=== PATIENT | male | born 1985 | race Caucasian/White ===

== ENCOUNTER 2021-12-15 19:40 | Inpatient (IN) | payer OTHER ==
[2021-12-15 20:13] VITALS: BMI 27.6
[2021-12-15] MEDS ORDERED: ACETAMINOPHEN 325 MG TABLET (FP) PO PRN ×2 (20:25)
[2021-12-15] MEDS ORDERED: LOPERAMIDE HCL 2 MG CAPSULE PO PRN (20:25)
[2021-12-15] MEDS ORDERED: BENZOCAINE/MENTHOL (CHLORASEPTIC ) LOZENGE MM PRN (20:25)
[2021-12-15] MEDS ORDERED: IBUPROFEN 400 MG TABLET (FP) PO PRN (20:25)
[2021-12-15] MEDS ORDERED: DICYCLOMINE HCL 10 MG CAPSULE PO PRN (20:25)
[2021-12-15] MEDS ORDERED: BISMUTH SUBSALICYLATE 524 MG/30 ML PO PRN (20:25)
[2021-12-15] MEDS ORDERED: MAGNESIUM CITRATE 300 ML BOTTLE PO PRN (20:25)
[2021-12-15] MEDS ORDERED: P-EPHED 60MG/TRIPROLIDI 2.5MG TABLET PO PRN (20:25)
[2021-12-15] MEDS ORDERED: MAG HYDROX/AL HYDROX/SIMETH 30 ML UNIT-DOSE CUP PO PRN (20:25)
[2021-12-15] MEDS ORDERED: IBUPROFEN 600 MG TABLET (FP) PO PRN (20:25)
[2021-12-15] MEDS ORDERED: ONDANSETRON *ODT* 4 MG TABLET SL PRN (20:25)
[2021-12-15] MEDS ORDERED: MAGNESIUM HYDROX 2400MG/30ML ORAL SUSPENSION 30 ML CUP PO PRN (20:25)
[2021-12-15] MEDS ORDERED: guaiFENesin 200 MG/10 ML 10 ML UNIT-DOSE CUPS PO PRN (20:25)
[2021-12-15] MEDS ORDERED: chlordiazePOXIDE HCL 25 MG CAPSULE PO ONE (20:26)
[2021-12-15] MEDS ORDERED: METOPROLOL TARTRATE 25 MG TABLET (FP) PO ONE (20:30)
[2021-12-15] MEDS ORDERED: LORazepam 2 MG/ML SDV VIAL IM ONE (20:30)
[2021-12-15] MEDS ORDERED: METOPROLOL TARTRATE 25 MG TABLET (FP) ONE (20:43)
[2021-12-15] MEDS ORDERED: chlordiazePOXIDE HCL 25 MG CAPSULE ONE (20:43)
[2021-12-15] MEDS: levETIRAcetam 500 MG TABLET (FP) PO SCH (22:00)
[2021-12-15] MEDS: THIAMINE HCL 100 MG TABLET (FP) PO SCH (22:03)
[2021-12-15] MEDS: MELATONIN 5 MG TABLETS PO PRN (22:06)
[2021-12-15] MEDS: chlordiazePOXIDE HCL 25 MG CAPSULE PO SCH (23:31)
[2021-12-16] MEDS: chlordiazePOXIDE HCL 25 MG CAPSULE PO SCH ×4 (05:46→22:17)
[2021-12-16] MEDS: levETIRAcetam 500 MG TABLET (FP) PO SCH ×2 (10:04→22:17)
[2021-12-16] MEDS: PRENATAL VITAMINS W/ FOLIC ACID TABLET (FP) PO SCH (10:04)
[2021-12-16] MEDS: chlordiazePOXIDE HCL 25 MG CAPSULE PO PRN ×2 (13:40→20:31)
[2021-12-16 14:23] LABS: HEMATOCRIT 37.6 % (35.4-49); HEMOGLOBIN 12.3 GM/dL (11.7-16.9); MCH 29.3 pg (25.7-33.7); MCHC 32.8 g/dl (32.0-35.9); MEAN CELL VOLUME 89.4 fl (80-96); MEAN PLT VOLUME 8.3 fl (7.5-11.1); PLATELET COUNT 126 10^3/uL (134-434); RBC 4.21 M/mm3 (4.00-5.60); RDW 17.8 % (11.9-15.9)
[2021-12-16] MEDS: METHOCARBAMOL 500 MG TABLET PO PRN (15:28)
[2021-12-16] MEDS: hydrOXYzine PAMOATE 25 MG CAPSULE (FP) PO PRN (15:28)
[2021-12-16 15:34] LABS: ALBUMIN 3.4 g/dl (3.4-5.0); BLOOD UREA NITROGEN 8.5 mg/dL (7-18); CALCIUM 8.5 mg/dL (8.5-10.1)
[2021-12-16 15:38] LABS: CREATININE 0.7 mg/dL (0.55-1.3)
[2021-12-16 15:40] LABS: BILIRUBIN,TOTAL 0.7 mg/dL (0.2-1); TOT PROT 7.3 g/dl (6.4-8.2)
[2021-12-16] MEDS: MELATONIN 5 MG TABLETS PO PRN (22:17)
[2021-12-16] MEDS: THIAMINE HCL 100 MG TABLET (FP) PO SCH (22:17)
[2021-12-17] MEDS: chlordiazePOXIDE HCL 25 MG CAPSULE PO SCH ×4 (06:43→22:07)
[2021-12-17] MEDS: levETIRAcetam 500 MG TABLET (FP) PO SCH ×2 (10:18→22:08)
[2021-12-17] MEDS: PRENATAL VITAMINS W/ FOLIC ACID TABLET (FP) PO SCH (10:18)
[2021-12-17] MEDS: MELATONIN 5 MG TABLETS PO PRN (22:08)
[2021-12-17] MEDS: THIAMINE HCL 100 MG TABLET (FP) PO SCH (22:08)
[2021-12-17] MEDS: METHOCARBAMOL 500 MG TABLET PO PRN (22:08)
[2021-12-18] MEDS ORDERED: chlordiazePOXIDE HCL 10 MG CAPSULE PO PRN
[2021-12-18] MEDS: chlordiazePOXIDE HCL 10 MG CAPSULE PO SCH ×4 (05:12→22:29)
[2021-12-18] MEDS: PRENATAL VITAMINS W/ FOLIC ACID TABLET (FP) PO SCH (10:34)
[2021-12-18] MEDS: levETIRAcetam 500 MG TABLET (FP) PO SCH ×2 (10:34→22:28)
[2021-12-18] MEDS: MELATONIN 5 MG TABLETS PO PRN (22:29)
[2021-12-18] MEDS: THIAMINE HCL 100 MG TABLET (FP) PO SCH (22:29)
[2021-12-18] MEDS: METHOCARBAMOL 500 MG TABLET PO PRN (22:31)
[2021-12-19] MEDS: chlordiazePOXIDE HCL 10 MG CAPSULE PO SCH ×2 (05:09→17:26)
[2021-12-19] MEDS: levETIRAcetam 500 MG TABLET (FP) PO SCH ×2 (10:45→22:46)
[2021-12-19] MEDS: PRENATAL VITAMINS W/ FOLIC ACID TABLET (FP) PO SCH (10:45)
[2021-12-19] MEDS: hydrOXYzine PAMOATE 25 MG CAPSULE (FP) PO PRN (17:28)
[2021-12-19] MEDS: METHOCARBAMOL 500 MG TABLET PO PRN (17:29)
[2021-12-19] MEDS: THIAMINE HCL 100 MG TABLET (FP) PO SCH (22:46)
[2021-12-19] MEDS: MELATONIN 5 MG TABLETS PO PRN (22:46)
[2021-12-20] MEDS ORDERED: chlordiazePOXIDE HCL 10 MG CAPSULE PO ONE (05:00)
[2021-12-20 08:47] VITALS: BP 143/99; PULSE 94; RESP 16; TEMP 98
[2021-12-20] MEDS: PRENATAL VITAMINS W/ FOLIC ACID TABLET (FP) PO SCH (10:16)
[2021-12-20] MEDS: levETIRAcetam 500 MG TABLET (FP) PO SCH (10:16)
== END 2021-12-20 10:58 | disposition other institution (70) | DRG 774 ==
LOC: YASAS 19:40 → Y3N 21:17
PROVIDERS: ADMIT Allergy & Immunology; ATTEND Surgery
PROC: HZ2ZZZZ Detoxification Services for Substance Abuse Treatment (ICD-10-PCS; principal; 2021-12-15)
DX: F10.230 Alcohol dependence with withdrawal, uncomplicated (principal); F14.20 Cocaine dependence, uncomplicated; F10.220 Alcohol dependence with intoxication, uncomplicated; Z86.69 Personal history of other diseases of the nervous system and sense organs
CPT/HCPCS: 36415; 80053; 85027; 86780; 87811; C9803-CS; U0003; U0005

== ENCOUNTER 2021-12-20 11:03 | Inpatient (IN) | payer OTHER ==
[2021-12-20] MEDS ORDERED: IBUPROFEN 400 MG TABLET (FP) PO PRN (14:51)
[2021-12-20] MEDS ORDERED: MAGNESIUM CITRATE 300 ML BOTTLE PO PRN (14:51)
[2021-12-20] MEDS ORDERED: LOPERAMIDE HCL 2 MG CAPSULE PO PRN (14:51)
[2021-12-20] MEDS ORDERED: MAG HYDROX/AL HYDROX/SIMETH 30 ML UNIT-DOSE CUP PO PRN (14:51)
[2021-12-20] MEDS ORDERED: ACETAMINOPHEN 325 MG TABLET (FP) PO PRN (14:51)
[2021-12-20] MEDS ORDERED: NICOTINE 10 MG CARTRIDGE (INHALER) IH PRN (14:51)
[2021-12-20] MEDS ORDERED: BENZOCAINE/MENTHOL (CHLORASEPTIC ) LOZENGE MM PRN (14:51)
[2021-12-20] MEDS ORDERED: P-EPHED 60MG/TRIPROLIDI 2.5MG TABLET PO PRN (14:51)
[2021-12-20] MEDS ORDERED: guaiFENesin 200 MG/10 ML 10 ML UNIT-DOSE CUPS PO PRN (14:51)
[2021-12-20] MEDS ORDERED: MAGNESIUM HYDROX 2400MG/30ML ORAL SUSPENSION 30 ML CUP PO PRN (14:51)
[2021-12-20] MEDS: THIAMINE HCL 100 MG TABLET (FP) PO SCH (21:12)
[2021-12-20] MEDS: MELATONIN 5 MG TABLETS PO SCH (21:12)
[2021-12-21] MEDS: hydrOXYzine PAMOATE 25 MG CAPSULE (FP) PO PRN ×3 (02:16→21:41)
[2021-12-21] MEDS: PRENATAL VITAMINS W/ FOLIC ACID TABLET (FP) PO SCH (09:59)
[2021-12-21] MEDS: NICOTINE 7 MG/24 HOURS TOPICAL PATCH TD SCH (09:59)
[2021-12-21] MEDS: traZODone HCL 50 MG TABLET (FP) PO SCH (21:41)
[2021-12-21] MEDS: THIAMINE HCL 100 MG TABLET (FP) PO SCH (21:41)
[2021-12-21] MEDS: MELATONIN 5 MG TABLETS PO SCH (21:41)
[2021-12-22] MEDS: PRENATAL VITAMINS W/ FOLIC ACID TABLET (FP) PO SCH (09:46)
[2021-12-22] MEDS: NICOTINE 7 MG/24 HOURS TOPICAL PATCH TD SCH (09:46)
[2021-12-22] MEDS ORDERED: LORazepam 2 MG/ML SDV VIAL IM ONE (22:05)
[2021-12-22] MEDS: traZODone HCL 50 MG TABLET (FP) PO SCH (23:16)
[2021-12-22] MEDS: THIAMINE HCL 100 MG TABLET (FP) PO SCH (23:16)
[2021-12-22] MEDS: MELATONIN 5 MG TABLETS PO SCH (23:16)
[2021-12-23] MEDS: hydrOXYzine PAMOATE 25 MG CAPSULE (FP) PO PRN ×2 (04:30→22:31)
[2021-12-23] MEDS: NICOTINE 7 MG/24 HOURS TOPICAL PATCH TD SCH (11:02)
[2021-12-23] MEDS: PRENATAL VITAMINS W/ FOLIC ACID TABLET (FP) PO SCH (11:02)
[2021-12-23] MEDS: levETIRAcetam 500 MG TABLET (FP) PO SCH ×2 (12:16→22:31)
[2021-12-23] MEDS: THIAMINE HCL 100 MG TABLET (FP) PO SCH (22:30)
[2021-12-23] MEDS: MELATONIN 5 MG TABLETS PO SCH (22:30)
[2021-12-23] MEDS: traZODone HCL 50 MG TABLET (FP) PO SCH (22:30)
[2021-12-24] MEDS: NICOTINE 7 MG/24 HOURS TOPICAL PATCH TD SCH (10:23)
[2021-12-24] MEDS: levETIRAcetam 500 MG TABLET (FP) PO SCH ×2 (10:23→21:54)
[2021-12-24] MEDS: PRENATAL VITAMINS W/ FOLIC ACID TABLET (FP) PO SCH (10:23)
[2021-12-24] MEDS: MELATONIN 5 MG TABLETS PO SCH (21:54)
[2021-12-24] MEDS: THIAMINE HCL 100 MG TABLET (FP) PO SCH (21:54)
[2021-12-24] MEDS: traZODone HCL 50 MG TABLET (FP) PO SCH (21:54)
[2021-12-24] MEDS: hydrOXYzine PAMOATE 25 MG CAPSULE (FP) PO PRN (21:55)
[2021-12-25] MEDS: NICOTINE 7 MG/24 HOURS TOPICAL PATCH TD SCH (09:32)
[2021-12-25] MEDS: levETIRAcetam 500 MG TABLET (FP) PO SCH ×2 (09:32→21:30)
[2021-12-25] MEDS: PRENATAL VITAMINS W/ FOLIC ACID TABLET (FP) PO SCH (09:32)
[2021-12-25] MEDS: MELATONIN 5 MG TABLETS PO SCH (21:30)
[2021-12-25] MEDS: hydrOXYzine PAMOATE 25 MG CAPSULE (FP) PO PRN (21:30)
[2021-12-25] MEDS: THIAMINE HCL 100 MG TABLET (FP) PO SCH (21:30)
[2021-12-25] MEDS: traZODone HCL 50 MG TABLET (FP) PO SCH (21:30)
[2021-12-26] MEDS: PRENATAL VITAMINS W/ FOLIC ACID TABLET (FP) PO SCH (09:38)
[2021-12-26] MEDS: levETIRAcetam 500 MG TABLET (FP) PO SCH ×2 (09:38→21:30)
[2021-12-26] MEDS: NICOTINE 7 MG/24 HOURS TOPICAL PATCH TD SCH (09:38)
[2021-12-26] MEDS: traZODone HCL 50 MG TABLET (FP) PO SCH (21:30)
[2021-12-26] MEDS: MELATONIN 5 MG TABLETS PO SCH (21:30)
[2021-12-26] MEDS: hydrOXYzine PAMOATE 25 MG CAPSULE (FP) PO PRN (21:30)
[2021-12-26] MEDS: THIAMINE HCL 100 MG TABLET (FP) PO SCH (21:30)
[2021-12-27] MEDS: levETIRAcetam 500 MG TABLET (FP) PO SCH ×2 (09:40→21:24)
[2021-12-27] MEDS: PRENATAL VITAMINS W/ FOLIC ACID TABLET (FP) PO SCH (09:40)
[2021-12-27] MEDS: hydrOXYzine PAMOATE 25 MG CAPSULE (FP) PO PRN (21:24)
[2021-12-27] MEDS: THIAMINE HCL 100 MG TABLET (FP) PO SCH (21:24)
[2021-12-27] MEDS: MELATONIN 5 MG TABLETS PO SCH (21:24)
[2021-12-27] MEDS: traZODone HCL 50 MG TABLET (FP) PO SCH (21:24)
[2021-12-28] MEDS: PRENATAL VITAMINS W/ FOLIC ACID TABLET (FP) PO SCH (09:40)
[2021-12-28] MEDS: levETIRAcetam 500 MG TABLET (FP) PO SCH ×2 (09:40→21:12)
[2021-12-28] MEDS: traZODone HCL 50 MG TABLET (FP) PO SCH (21:11)
[2021-12-28] MEDS: hydrOXYzine PAMOATE 25 MG CAPSULE (FP) PO PRN (21:12)
[2021-12-28] MEDS: THIAMINE HCL 100 MG TABLET (FP) PO SCH (21:12)
[2021-12-28] MEDS: MELATONIN 5 MG TABLETS PO SCH (21:12)
[2021-12-29] MEDS: levETIRAcetam 500 MG TABLET (FP) PO SCH ×2 (10:32→21:24)
[2021-12-29] MEDS: PRENATAL VITAMINS W/ FOLIC ACID TABLET (FP) PO SCH (10:32)
[2021-12-29] MEDS: traZODone HCL 50 MG TABLET (FP) PO SCH (21:24)
[2021-12-29] MEDS: THIAMINE HCL 100 MG TABLET (FP) PO SCH (21:24)
[2021-12-29] MEDS: MELATONIN 5 MG TABLETS PO SCH (21:24)
[2021-12-30] MEDS: levETIRAcetam 500 MG TABLET (FP) PO SCH ×2 (09:41→22:40)
[2021-12-30] MEDS: PRENATAL VITAMINS W/ FOLIC ACID TABLET (FP) PO SCH (09:41)
[2021-12-30] MEDS: traZODone HCL 50 MG TABLET (FP) PO SCH (22:40)
[2021-12-30] MEDS: THIAMINE HCL 100 MG TABLET (FP) PO SCH (22:41)
[2021-12-30] MEDS: MELATONIN 5 MG TABLETS PO SCH (22:41)
[2021-12-31] MEDS: levETIRAcetam 500 MG TABLET (FP) PO SCH ×2 (09:45→22:27)
[2021-12-31] MEDS: PRENATAL VITAMINS W/ FOLIC ACID TABLET (FP) PO SCH (09:45)
[2021-12-31] MEDS: MELATONIN 5 MG TABLETS PO SCH (22:26)
[2021-12-31] MEDS: THIAMINE HCL 100 MG TABLET (FP) PO SCH (22:27)
[2021-12-31] MEDS: traZODone HCL 50 MG TABLET (FP) PO SCH (22:27)
[2022-01-01] MEDS: hydrOXYzine PAMOATE 25 MG CAPSULE (FP) PO PRN (09:41)
[2022-01-01] MEDS: levETIRAcetam 500 MG TABLET (FP) PO SCH ×2 (09:41→22:31)
[2022-01-01] MEDS: PRENATAL VITAMINS W/ FOLIC ACID TABLET (FP) PO SCH (09:41)
[2022-01-01] MEDS: traZODone HCL 50 MG TABLET (FP) PO SCH (22:30)
[2022-01-01] MEDS: MELATONIN 5 MG TABLETS PO SCH (22:31)
[2022-01-01] MEDS: THIAMINE HCL 100 MG TABLET (FP) PO SCH (22:31)
[2022-01-02] MEDS: PRENATAL VITAMINS W/ FOLIC ACID TABLET (FP) PO SCH (09:38)
[2022-01-02] MEDS: levETIRAcetam 500 MG TABLET (FP) PO SCH ×2 (09:38→22:35)
[2022-01-02] MEDS: traZODone HCL 50 MG TABLET (FP) PO SCH (22:35)
[2022-01-02] MEDS: MELATONIN 5 MG TABLETS PO SCH (22:35)
[2022-01-02] MEDS: THIAMINE HCL 100 MG TABLET (FP) PO SCH (22:35)
[2022-01-03] MEDS: levETIRAcetam 500 MG TABLET (FP) PO SCH ×2 (10:21→22:28)
[2022-01-03] MEDS: PRENATAL VITAMINS W/ FOLIC ACID TABLET (FP) PO SCH (10:21)
[2022-01-03] MEDS: traZODone HCL 50 MG TABLET (FP) PO SCH (22:28)
[2022-01-03] MEDS: THIAMINE HCL 100 MG TABLET (FP) PO SCH (22:28)
[2022-01-03] MEDS: MELATONIN 5 MG TABLETS PO SCH (22:28)
[2022-01-04] MEDS: levETIRAcetam 500 MG TABLET (FP) PO SCH ×2 (09:47→22:35)
[2022-01-04] MEDS: PRENATAL VITAMINS W/ FOLIC ACID TABLET (FP) PO SCH (09:47)
[2022-01-04] MEDS: MELATONIN 5 MG TABLETS PO SCH (22:35)
[2022-01-04] MEDS: THIAMINE HCL 100 MG TABLET (FP) PO SCH (22:35)
[2022-01-04] MEDS: traZODone HCL 50 MG TABLET (FP) PO SCH (22:35)
[2022-01-05] MEDS: PRENATAL VITAMINS W/ FOLIC ACID TABLET (FP) PO SCH (09:41)
[2022-01-05] MEDS: levETIRAcetam 500 MG TABLET (FP) PO SCH ×2 (09:41→21:40)
[2022-01-05] MEDS: traZODone HCL 50 MG TABLET (FP) PO SCH (21:40)
[2022-01-05] MEDS: THIAMINE HCL 100 MG TABLET (FP) PO SCH (21:40)
[2022-01-05] MEDS: MELATONIN 5 MG TABLETS PO SCH (21:40)
[2022-01-06] MEDS: PRENATAL VITAMINS W/ FOLIC ACID TABLET (FP) PO SCH (10:28)
[2022-01-06] MEDS: levETIRAcetam 500 MG TABLET (FP) PO SCH ×2 (10:28→22:37)
[2022-01-06] MEDS: traZODone HCL 50 MG TABLET (FP) PO SCH (22:37)
[2022-01-06] MEDS: MELATONIN 5 MG TABLETS PO SCH (22:37)
[2022-01-06] MEDS: THIAMINE HCL 100 MG TABLET (FP) PO SCH (22:37)
[2022-01-07] MEDS: levETIRAcetam 500 MG TABLET (FP) PO SCH ×2 (09:43→21:51)
[2022-01-07] MEDS: PRENATAL VITAMINS W/ FOLIC ACID TABLET (FP) PO SCH (09:43)
[2022-01-07] MEDS: THIAMINE HCL 100 MG TABLET (FP) PO SCH (21:51)
[2022-01-07] MEDS: hydrOXYzine PAMOATE 25 MG CAPSULE (FP) PO PRN (21:51)
[2022-01-07] MEDS: MELATONIN 5 MG TABLETS PO SCH (21:51)
[2022-01-07] MEDS: traZODone HCL 50 MG TABLET (FP) PO SCH (21:51)
[2022-01-08] MEDS: levETIRAcetam 500 MG TABLET (FP) PO SCH ×2 (10:11→21:29)
[2022-01-08] MEDS: PRENATAL VITAMINS W/ FOLIC ACID TABLET (FP) PO SCH (10:11)
[2022-01-08] MEDS: MELATONIN 5 MG TABLETS PO SCH (21:29)
[2022-01-08] MEDS: THIAMINE HCL 100 MG TABLET (FP) PO SCH (21:29)
[2022-01-08] MEDS: traZODone HCL 50 MG TABLET (FP) PO SCH (21:29)
[2022-01-09] MEDS: levETIRAcetam 500 MG TABLET (FP) PO SCH ×2 (09:52→21:31)
[2022-01-09] MEDS: PRENATAL VITAMINS W/ FOLIC ACID TABLET (FP) PO SCH (09:52)
[2022-01-09] MEDS: traZODone HCL 50 MG TABLET (FP) PO SCH (21:31)
[2022-01-09] MEDS: THIAMINE HCL 100 MG TABLET (FP) PO SCH (21:31)
[2022-01-09] MEDS: MELATONIN 5 MG TABLETS PO SCH (21:31)
[2022-01-10] MEDS: levETIRAcetam 500 MG TABLET (FP) PO SCH ×2 (09:34→21:33)
[2022-01-10] MEDS: PRENATAL VITAMINS W/ FOLIC ACID TABLET (FP) PO SCH (09:34)
[2022-01-10] MEDS: THIAMINE HCL 100 MG TABLET (FP) PO SCH (21:33)
[2022-01-10] MEDS: MELATONIN 5 MG TABLETS PO SCH (21:33)
[2022-01-10] MEDS: traZODone HCL 50 MG TABLET (FP) PO SCH (21:33)
[2022-01-11] MEDS: levETIRAcetam 500 MG TABLET (FP) PO SCH ×2 (09:56→21:38)
[2022-01-11] MEDS: PRENATAL VITAMINS W/ FOLIC ACID TABLET (FP) PO SCH (09:56)
[2022-01-11] MEDS: THIAMINE HCL 100 MG TABLET (FP) PO SCH (21:38)
[2022-01-11] MEDS: traZODone HCL 50 MG TABLET (FP) PO SCH (21:38)
[2022-01-11] MEDS: MELATONIN 5 MG TABLETS PO SCH (21:39)
[2022-01-12] MEDS: PRENATAL VITAMINS W/ FOLIC ACID TABLET (FP) PO SCH (09:57)
[2022-01-12] MEDS: levETIRAcetam 500 MG TABLET (FP) PO SCH ×2 (09:57→21:42)
[2022-01-12] MEDS: traZODone HCL 50 MG TABLET (FP) PO SCH (21:42)
[2022-01-12] MEDS: THIAMINE HCL 100 MG TABLET (FP) PO SCH (21:42)
[2022-01-12] MEDS: MELATONIN 5 MG TABLETS PO SCH (21:42)
[2022-01-13] MEDS: PRENATAL VITAMINS W/ FOLIC ACID TABLET (FP) PO SCH (10:04)
[2022-01-13] MEDS: levETIRAcetam 500 MG TABLET (FP) PO SCH ×2 (10:04→21:57)
[2022-01-13] MEDS: traZODone HCL 50 MG TABLET (FP) PO SCH (21:57)
[2022-01-13] MEDS: MELATONIN 5 MG TABLETS PO SCH (21:57)
[2022-01-13] MEDS: THIAMINE HCL 100 MG TABLET (FP) PO SCH (21:57)
[2022-01-14] MEDS: levETIRAcetam 500 MG TABLET (FP) PO SCH ×2 (09:46→21:32)
[2022-01-14] MEDS: PRENATAL VITAMINS W/ FOLIC ACID TABLET (FP) PO SCH (09:47)
[2022-01-14] MEDS: traZODone HCL 50 MG TABLET (FP) PO SCH (21:32)
[2022-01-14] MEDS: MELATONIN 5 MG TABLETS PO SCH (21:32)
[2022-01-14] MEDS: THIAMINE HCL 100 MG TABLET (FP) PO SCH (21:32)
[2022-01-15] MEDS: PRENATAL VITAMINS W/ FOLIC ACID TABLET (FP) PO SCH (09:30)
[2022-01-15] MEDS: levETIRAcetam 500 MG TABLET (FP) PO SCH ×2 (09:30→21:21)
[2022-01-15] MEDS: traZODone HCL 50 MG TABLET (FP) PO SCH (21:20)
[2022-01-15] MEDS: THIAMINE HCL 100 MG TABLET (FP) PO SCH (21:21)
[2022-01-15] MEDS: hydrOXYzine PAMOATE 25 MG CAPSULE (FP) PO PRN (21:21)
[2022-01-15] MEDS: MELATONIN 5 MG TABLETS PO SCH (21:21)
[2022-01-16] MEDS: PRENATAL VITAMINS W/ FOLIC ACID TABLET (FP) PO SCH (09:34)
[2022-01-16] MEDS: levETIRAcetam 500 MG TABLET (FP) PO SCH ×2 (09:34→21:28)
[2022-01-16] MEDS: traZODone HCL 50 MG TABLET (FP) PO SCH (21:28)
[2022-01-16] MEDS: hydrOXYzine PAMOATE 25 MG CAPSULE (FP) PO PRN (21:28)
[2022-01-16] MEDS: THIAMINE HCL 100 MG TABLET (FP) PO SCH (21:28)
[2022-01-16] MEDS: MELATONIN 5 MG TABLETS PO SCH (21:28)
[2022-01-17] MEDS: levETIRAcetam 500 MG TABLET (FP) PO SCH ×2 (10:03→21:42)
[2022-01-17] MEDS: PRENATAL VITAMINS W/ FOLIC ACID TABLET (FP) PO SCH (10:03)
[2022-01-17] MEDS: MELATONIN 5 MG TABLETS PO SCH (21:42)
[2022-01-17] MEDS: THIAMINE HCL 100 MG TABLET (FP) PO SCH (21:42)
[2022-01-17] MEDS: traZODone HCL 50 MG TABLET (FP) PO SCH (21:42)
[2022-01-18 06:53] VITALS: BP 112/75; PULSE 76; RESP 18; TEMP 97.3
[2022-01-18] MEDS: levETIRAcetam 500 MG TABLET (FP) PO SCH (09:03)
[2022-01-18] MEDS: PRENATAL VITAMINS W/ FOLIC ACID TABLET (FP) PO SCH (09:04)
== END 2022-01-18 09:35 | disposition home or self-care (01) | DRG 772 ==
LOC: YASAS 11:03 → Y3E 11:04
PROVIDERS: ADMIT Allergy & Immunology; ATTEND Psychiatry & Neurology Pain Medicine
PROC: HZ42ZZZ Group Counseling for Substance Abuse Treatment, Cognitive-Behavioral (ICD-10-PCS; principal; 2021-12-20)
DX: F10.20 Alcohol dependence, uncomplicated (principal); F10.282 Alcohol dependence with alcohol-induced sleep disorder; F10.24 Alcohol dependence with alcohol-induced mood disorder; R56.9 Unspecified convulsions; Z59.00 Homelessness unspecified; Z56.0 Unemployment, unspecified
CPT/HCPCS: 36415; 80177

== ENCOUNTER 2021-12-22 22:52 | Emergency (ER) | payer OTHER ==
[2021-12-22 23:11] VITALS: TEMP 98.8; BMI 26.6
[2021-12-22 23:34] LABS: BASO % 1.3 % (0-2.0); HEMATOCRIT 35.2 % (35.4-49); HEMOGLOBIN 11.9 GM/dL (11.7-16.9); LYMPH % 25.6 % (8-40); MCH 30.6 pg (25.7-33.7); MCHC 33.9 g/dl (32.0-35.9); MEAN CELL VOLUME 90.3 fl (80-96); MEAN PLT VOLUME 6.9 fl (7.5-11.1); MONO % 20.4 % (3.8-10.2); NEUT % 48.7 % (42.8-82.8); PLATELET COUNT 276 10^3/uL (134-434); RDW 17.6 % (11.9-15.9)
[2021-12-22] MEDS ORDERED: LORazepam 2 MG TABLET PO ONE (23:46)
[2021-12-22 23:55] LABS: CALCIUM 8.7 mg/dL (8.5-10.1)
[2021-12-22 23:56] LABS: ALBUMIN 3.6 g/dl (3.4-5.0); BLOOD UREA NITROGEN 9.9 mg/dL (7-18); MAGNESIUM 2.2 mg/dL (1.8-2.4)
[2021-12-22 23:59] LABS: CREATININE 0.8 mg/dL (0.55-1.3)
[2021-12-23] LABS: BILIRUBIN,TOTAL 0.2 mg/dL (0.2-1); TOT PROT 7.6 g/dl (6.4-8.2)
[2021-12-23] MEDS ORDERED: LORazepam 1 MG TABLET ONE (00:21)
[2021-12-23 01:57] LABS: ANISOCYTOSIS 0; MACROCYTOSIS 0; OVALOCYTE 1+
[2021-12-23 03:52] VITALS: BP 130/84; PULSE 76; RESP 18
== END 2021-12-23 03:52 | disposition short-term general hospital (02) ==
LOC: JER 22:52
DX: R56.9 Unspecified convulsions (principal); F10.20 Alcohol dependence, uncomplicated
CPT/HCPCS: 36415; 70450-TC; 80053; 83735; 85025; 99285-25

== ENCOUNTER 2022-12-10 15:59 | Inpatient (IN) | payer OTHER ==
[2022-12-10 17:56] VITALS: BMI 23.6
[2022-12-10] MEDS ORDERED: LORazepam 2 MG/ML SDV VIAL IM ONE (18:45)
[2022-12-10] MEDS ORDERED: BISMUTH SUBSALICYLATE 524 MG/30 ML PO PRN (19:16)
[2022-12-10] MEDS ORDERED: NICOTINE POLACRILEX 2 MG GUM BUC PRN (19:16)
[2022-12-10] MEDS ORDERED: POLYETHYLENE GLYCOL (HEALTHYLAX) 3350 17 GM PACKET PO PRN (19:16)
[2022-12-10] MEDS ORDERED: MAG HYDROX/AL HYDROX/SIMETH 30 ML UNIT-DOSE CUP PO PRN (19:16)
[2022-12-10] MEDS ORDERED: guaiFENesin 600 MG TABLET.ER (FP) PO PRN (19:16)
[2022-12-10] MEDS ORDERED: BENZOCAINE/MENTHOL (CHLORASEPTIC ) LOZENGE MM PRN (19:16)
[2022-12-10] MEDS ORDERED: IBUPROFEN 400 MG TABLET (FP) PO PRN (19:16)
[2022-12-10] MEDS ORDERED: ACETAMINOPHEN 325 MG TABLET (FP) PO PRN (19:16)
[2022-12-10] MEDS ORDERED: NALOXONE HCL 0.4 MG/ML VIAL IM PRN (19:16)
[2022-12-10] MEDS ORDERED: hydrOXYzine PAMOATE 25 MG CAPSULE (FP) PO PRN (19:16)
[2022-12-10] MEDS ORDERED: NALOXONE HCL (KLOXXADO) 8 MG SPRAY NS PRN (19:16)
[2022-12-10] MEDS ORDERED: ONDANSETRON *ODT* 4 MG TABLET SL PRN (19:16)
[2022-12-10] MEDS ORDERED: MAGNESIUM HYDROX 2400MG/30ML ORAL SUSPENSION 30 ML CUP PO PRN (19:16)
[2022-12-10] MEDS ORDERED: IBUPROFEN 600 MG TABLET (FP) PO PRN (19:16)
[2022-12-10] MEDS ORDERED: BENZONATATE 200 MG CAPSULE PO PRN (19:16)
[2022-12-10] MEDS ORDERED: DICYCLOMINE HCL 10 MG CAPSULE PO PRN (19:16)
[2022-12-10] MEDS ORDERED: LORazepam 1 MG TABLET PO PRN (19:16)
[2022-12-10] MEDS ORDERED: LOPERAMIDE HCL 2 MG CAPSULE PO PRN (19:16)
[2022-12-10] MEDS: MELATONIN 5 MG TABLETS PO SCH (22:36)
[2022-12-10] MEDS: METHOCARBAMOL 500 MG TABLET PO PRN (22:37)
[2022-12-10] MEDS: levETIRAcetam 500 MG TABLET (FP) PO SCH (22:37)
[2022-12-10] MEDS: THIAMINE HCL 100 MG TABLET (FP) PO SCH (22:37)
[2022-12-10] MEDS: LORazepam 2 MG TABLET PO SCH (22:37)
[2022-12-11] MEDS: LORazepam 2 MG TABLET PO SCH ×4 (05:28→22:03)
[2022-12-11 09:34] LABS: HEMATOCRIT 36.7 % (35.4-49); HEMOGLOBIN 12.3 GM/dL (11.7-16.9); MCH 29.2 pg (25.7-33.7); MCHC 33.4 g/dl (32.0-35.9); MEAN CELL VOLUME 87.6 fl (80-96); MEAN PLT VOLUME 7.1 fl (7.5-11.1); PLATELET COUNT 409 10^3/uL (134-434); RBC 4.19 M/mm3 (4.00-5.60); RDW 15.8 % (11.9-15.9); WHITE BLOOD COUNT 4.9 K/mm3 (4.0-10.0)
[2022-12-11 09:54] LABS: ALBUMIN 3.3 g/dl (3.4-5.0); CALCIUM 8.5 mg/dL (8.5-10.1)
[2022-12-11 09:55] LABS: BLOOD UREA NITROGEN 8.9 mg/dL (7-18)
[2022-12-11 09:57] LABS: CREATININE 0.6 mg/dL (0.55-1.3)
[2022-12-11 09:58] LABS: TOT PROT 6.9 g/dl (6.4-8.2)
[2022-12-11 09:59] LABS: BILIRUBIN,TOTAL 0.8 mg/dL (0.2-1)
[2022-12-11] MEDS: levETIRAcetam 500 MG TABLET (FP) PO SCH ×2 (10:25→22:04)
[2022-12-11] MEDS: PRENATAL VITAMINS W/ FOLIC ACID TABLET (FP) PO SCH (10:25)
[2022-12-11] MEDS: THIAMINE HCL 100 MG TABLET (FP) PO SCH (22:04)
[2022-12-11] MEDS: MELATONIN 5 MG TABLETS PO SCH (22:04)
[2022-12-12] MEDS: LORazepam 1 MG TABLET PO SCH ×4 (05:17→22:19)
[2022-12-12] MEDS: PRENATAL VITAMINS W/ FOLIC ACID TABLET (FP) PO SCH (10:14)
[2022-12-12] MEDS: levETIRAcetam 500 MG TABLET (FP) PO SCH ×2 (10:14→22:19)
[2022-12-12] MEDS: THIAMINE HCL 100 MG TABLET (FP) PO SCH (22:19)
[2022-12-12] MEDS: MELATONIN 5 MG TABLETS PO SCH (22:19)
[2022-12-12] MEDS: traZODone HCL 100 MG TABLET (FP) PO SCH (22:19)
[2022-12-12] MEDS: METHOCARBAMOL 500 MG TABLET PO PRN (22:20)
[2022-12-13] MEDS ORDERED: LORazepam 0.5 MG TABLET PO PRN
[2022-12-13] MEDS: LORazepam 0.5 MG TABLET PO SCH ×4 (05:23→22:11)
[2022-12-13] MEDS: levETIRAcetam 500 MG TABLET (FP) PO SCH ×2 (10:10→22:10)
[2022-12-13] MEDS: PRENATAL VITAMINS W/ FOLIC ACID TABLET (FP) PO SCH (10:10)
[2022-12-13] MEDS: traZODone HCL 100 MG TABLET (FP) PO SCH (22:10)
[2022-12-13] MEDS: METHOCARBAMOL 500 MG TABLET PO PRN (22:10)
[2022-12-13] MEDS: THIAMINE HCL 100 MG TABLET (FP) PO SCH (22:11)
[2022-12-13] MEDS: MELATONIN 5 MG TABLETS PO SCH (22:11)
[2022-12-14] MEDS ORDERED: LORazepam 0.5 MG TABLET PO ONE (05:00)
[2022-12-14 05:46] VITALS: RESP 16; TEMP 98
[2022-12-14 09:05] VITALS: BP 140/96; PULSE 105
== END 2022-12-14 08:57 | disposition home or self-care (01) | DRG 774 ==
LOC: YASAS 15:59 → Y3N 19:43
PROVIDERS: ADMIT Allergy & Immunology; ATTEND Surgery
PROC: HZ2ZZZZ Detoxification Services for Substance Abuse Treatment (ICD-10-PCS; principal; 2022-12-10)
DX: F10.230 Alcohol dependence with withdrawal, uncomplicated (principal); F14.20 Cocaine dependence, uncomplicated; G47.00 Insomnia, unspecified; R56.9 Unspecified convulsions; Z72.0 Tobacco use; Z86.59 Personal history of other mental and behavioral disorders; Z59.02 Unsheltered homelessness
CPT/HCPCS: 36415; 80053; 85027; 86780; 87635; 87811

== ENCOUNTER 2023-12-12 13:11 | Inpatient (IN) | payer OTHER ==
[2023-12-12 14:40] VITALS: BMI 27.4
[2023-12-12] MEDS ORDERED: levETIRAcetam 500 MG TABLET (FP) PO ONE (15:55)
[2023-12-12] MEDS ORDERED: LORazepam 2 MG TABLET ONE ×2 (15:55→17:45)
[2023-12-12] MEDS: levETIRAcetam 500 MG TABLET (FP) PO ONE (15:58)
[2023-12-12] MEDS: LORazepam 2 MG TABLET PO ONE (15:59)
[2023-12-12] MEDS ORDERED: POLYETHYLENE GLYCOL (HEALTHYLAX) 3350 17 GM PACKET PO PRN (16:05)
[2023-12-12] MEDS ORDERED: MAG HYDROX/AL HYDROX/SIMETH 30 ML UNIT-DOSE CUP PO PRN (16:05)
[2023-12-12] MEDS ORDERED: IBUPROFEN 600 MG TABLET (FP) PO PRN (16:05)
[2023-12-12] MEDS ORDERED: NALOXONE (NARCAN) HCL 4 MG/0.1 ML SPRAY NS PRN (16:05)
[2023-12-12] MEDS ORDERED: BISMUTH SUBSALICYLATE 524 MG/30 ML PO PRN (16:05)
[2023-12-12] MEDS ORDERED: ONDANSETRON *ODT* 4 MG TABLET SL PRN (16:05)
[2023-12-12] MEDS ORDERED: guaiFENesin 600 MG TABLET.ER (FP) PO PRN (16:05)
[2023-12-12] MEDS ORDERED: DICYCLOMINE HCL 10 MG CAPSULE PO PRN (16:05)
[2023-12-12] MEDS ORDERED: MAGNESIUM HYDROX 2400MG/30ML ORAL SUSPENSION 30 ML CUP PO PRN (16:05)
[2023-12-12] MEDS ORDERED: BENZOCAINE/MENTHOL (CHLORASEPTIC ) LOZENGE MM PRN (16:05)
[2023-12-12] MEDS ORDERED: NALOXONE (NYS OPIOID OVERDOSE PROGRAM) 4 MG/0.1 ML SPRAY NS PRN (16:05)
[2023-12-12] MEDS ORDERED: IBUPROFEN 400 MG TABLET (FP) PO PRN (16:05)
[2023-12-12] MEDS ORDERED: LOPERAMIDE HCL 2 MG CAPSULE PO PRN (16:05)
[2023-12-12] MEDS ORDERED: BENZONATATE 200 MG CAPSULE PO PRN (16:05)
[2023-12-12] MEDS ORDERED: LORazepam 1 MG TABLET PO PRN (16:08)
[2023-12-12] MEDS: LORazepam 2 MG TABLET PO SCH (17:52)
[2023-12-12] MEDS: PRENATAL VITAMINS W/ FOLIC ACID TABLET (FP) PO SCH (18:12)
[2023-12-12] MEDS ORDERED: levETIRAcetam 500 MG TABLET (FP) PO SCH (22:00)
[2023-12-12] MEDS: THIAMINE 100 MG TABLET PO SCH (22:10)
[2023-12-12] MEDS: MELATONIN 5 MG TABLETS PO SCH (22:11)
[2023-12-13] MEDS: LORazepam 2 MG/ML SDV VIAL IM ONE (09:53)
[2023-12-13] MEDS: levETIRAcetam 500 MG TABLET (FP) PO SCH (11:03)
[2023-12-13] MEDS: diazePAM 5 MG TABLET PO SCH (11:03)
[2023-12-13] MEDS: ACETAMINOPHEN 325 MG TABLET (FP) PO PRN (11:05)
[2023-12-13] MEDS: METHOCARBAMOL 500 MG TABLET PO PRN (11:07)
[2023-12-13] MEDS: hydrOXYzine PAMOATE 25 MG CAPSULE (FP) PO PRN (11:07)
[2023-12-13 11:31] LABS: CHLORIDE 101 mmol/L (98-107); POTASSIUM 3.8 mmol/L (3.5-5.1); SODIUM 135 mmol/L (136-145)
[2023-12-13 11:32] LABS: HEMATOCRIT 32.7 % (35.4-49); HEMOGLOBIN 11.1 GM/dL (11.7-16.9); MCH 31.1 pg (25.7-33.7); MCHC 33.9 g/dl (32.0-35.9); MEAN CELL VOLUME 91.7 fl (80-96); MEAN PLT VOLUME 7.8 fl (7.5-11.1); PLATELET COUNT 152 10^3/uL (134-434); RBC 3.57 M/mm3 (4.00-5.60); RDW 18.1 % (11.9-15.9); WHITE BLOOD COUNT 2.2 K/mm3 (4.0-10.0)
[2023-12-13 11:36] LABS: ANION GAP 6 mmol/L (4-13); BLOOD UREA NITROGEN 6.6 mg/dL (7-18); CALCIUM 8.9 mg/dL (8.5-10.1); CO2 28 mmol/L (21-32); GLUCOSE,RANDOM 91 mg/dL (74-106)
[2023-12-13 11:39] LABS: CREATININE 0.7 mg/dL (0.55-1.3); SGOT/AST 353 U/L (15-37); SGPT/ALT 145 U/L (13-61)
[2023-12-13 11:41] LABS: BILIRUBIN,TOTAL 1.1 mg/dL (0.2-1); TOT PROT 7.8 g/dl (6.4-8.2)
[2023-12-13 11:42] LABS: ALK PHOS 222 U/L (45-117)
[2023-12-13] MEDS: diazePAM 5 MG TABLET PO PRN (13:45)
[2023-12-13] MEDS: traZODone HCL 100 MG TABLET (FP) PO SCH (22:52)
[2023-12-14] MEDS ORDERED: LORazepam 1 MG TABLET PO SCH (05:00)
[2023-12-14 16:04] LABS: POTASSIUM 3.7 mmol/L (3.5-5.1)
[2023-12-14 16:09] LABS: BLOOD UREA NITROGEN 10.3 mg/dL (7-18); CALCIUM 9.2 mg/dL (8.5-10.1)
[2023-12-14 16:10] LABS: ALBUMIN 3.1 g/dl (3.4-5.0)
[2023-12-14 16:12] LABS: CREATININE 0.7 mg/dL (0.55-1.3)
[2023-12-14 16:15] LABS: TOT PROT 7.6 g/dl (6.4-8.2)
[2023-12-14 16:16] LABS: BILIRUBIN,TOTAL 0.7 mg/dL (0.2-1)
[2023-12-15] MEDS ORDERED: LORazepam 0.5 MG TABLET PO PRN
[2023-12-15] MEDS ORDERED: LORazepam 0.5 MG TABLET PO SCH (05:00)
[2023-12-15] MEDS: diazePAM 5 MG TABLET PO SCH (05:11)
[2023-12-16] MEDS ORDERED: LORazepam 0.5 MG TABLET PO ONE (05:00)
[2023-12-16] MEDS: diazePAM 5 MG TABLET PO SCH (05:31)
[2023-12-17] MEDS: diazePAM 5 MG TABLET PO ONE (05:41)
[2023-12-18 06:35] VITALS: RESP 17
[2023-12-18 09:51] VITALS: BP 121/74; PULSE 82; TEMP 97.8
== END 2023-12-18 11:00 | disposition other institution (70) | DRG 774 ==
LOC: YASAS 13:11 → Y3N 16:55
PROVIDERS: ADMIT Allergy & Immunology; ATTEND Surgery
PROC: HZ2ZZZZ Detoxification Services for Substance Abuse Treatment (ICD-10-PCS; principal; 2023-12-12)
DX: F10.230 Alcohol dependence with withdrawal, uncomplicated (principal); F14.20 Cocaine dependence, uncomplicated; F12.20 Cannabis dependence, uncomplicated; F17.210 Nicotine dependence, cigarettes, uncomplicated; F10.282 Alcohol dependence with alcohol-induced sleep disorder; R74.01 Elevation of levels of liver transaminase levels
CPT/HCPCS: 36415; 80053; 80305; 80307; 85027; 86780; 93005; 93010

== ENCOUNTER 2023-12-19 14:18 | Inpatient (IN) | payer OTHER ==
[2023-12-19 16:35] VITALS: BMI 28.8
[2023-12-19] MEDS ORDERED: BENZOCAINE/MENTHOL (CHLORASEPTIC ) LOZENGE MM PRN (17:42)
[2023-12-19] MEDS ORDERED: LOPERAMIDE HCL 2 MG CAPSULE PO PRN (17:42)
[2023-12-19] MEDS ORDERED: BISMUTH SUBSALICYLATE 524 MG/30 ML PO PRN (17:42)
[2023-12-19] MEDS ORDERED: guaiFENesin 600 MG TABLET.ER (FP) PO PRN (17:42)
[2023-12-19] MEDS ORDERED: DICYCLOMINE HCL 10 MG CAPSULE PO PRN (17:42)
[2023-12-19] MEDS ORDERED: BENZONATATE 200 MG CAPSULE PO PRN (17:42)
[2023-12-19] MEDS ORDERED: ONDANSETRON *ODT* 4 MG TABLET SL PRN (17:42)
[2023-12-19] MEDS ORDERED: IBUPROFEN 600 MG TABLET (FP) PO PRN (17:42)
[2023-12-19] MEDS ORDERED: MAG HYDROX/AL HYDROX/SIMETH 30 ML UNIT-DOSE CUP PO PRN (17:42)
[2023-12-19] MEDS ORDERED: IBUPROFEN 400 MG TABLET (FP) PO PRN (17:42)
[2023-12-19] MEDS ORDERED: POLYETHYLENE GLYCOL (HEALTHYLAX) 3350 17 GM PACKET PO PRN (17:42)
[2023-12-19] MEDS ORDERED: MAGNESIUM HYDROX 2400MG/30ML ORAL SUSPENSION 30 ML CUP PO PRN (17:42)
[2023-12-19] MEDS ORDERED: ACETAMINOPHEN 325 MG TABLET (FP) PO PRN (17:42)
[2023-12-19] MEDS ORDERED: chlordiazePOXIDE HCL 25 MG CAPSULE PO PRN (17:44)
[2023-12-19] MEDS ORDERED: chlordiazePOXIDE HCL 25 MG CAPSULE ONE (18:50)
[2023-12-19] MEDS: chlordiazePOXIDE HCL 25 MG CAPSULE PO ONE (18:55)
[2023-12-19] MEDS: levETIRAcetam 500 MG TABLET (FP) PO SCH (22:09)
[2023-12-19] MEDS: chlordiazePOXIDE HCL 25 MG CAPSULE PO SCH (22:09)
[2023-12-19] MEDS: THIAMINE 100 MG TABLET PO SCH (22:09)
[2023-12-19] MEDS: MELATONIN 5 MG TABLETS PO SCH (22:09)
[2023-12-20] MEDS: PRENATAL VITAMINS W/ FOLIC ACID TABLET (FP) PO SCH (10:25)
[2023-12-20] MEDS: METHOCARBAMOL 500 MG TABLET PO PRN (17:31)
[2023-12-20] MEDS: NALTREXONE HCL 50 MG TABLET PO SCH (17:52)
[2023-12-20] MEDS: traZODone HCL 50 MG TABLET (FP) PO SCH (22:06)
[2023-12-21] MEDS: chlordiazePOXIDE HCL 25 MG CAPSULE PO SCH (05:42)
[2023-12-22] MEDS: chlordiazePOXIDE HCL 10 MG CAPSULE PO SCH (05:45)
[2023-12-23] MEDS: chlordiazePOXIDE HCL 10 MG CAPSULE PO ONE (05:53)
[2023-12-25 09:19] VITALS: RESP 20; TEMP 98.4
[2023-12-25 13:08] VITALS: BP 111/69; PULSE 100
== END 2023-12-25 13:16 | disposition home or self-care (01) | DRG 774 ==
LOC: YASAS 14:18 → Y6N 19:45
PROVIDERS: ADMIT Allergy & Immunology; ATTEND Surgery
PROC: HZ2ZZZZ Detoxification Services for Substance Abuse Treatment (ICD-10-PCS; principal; 2023-12-19)
DX: F10.230 Alcohol dependence with withdrawal, uncomplicated (principal); F14.20 Cocaine dependence, uncomplicated; F12.20 Cannabis dependence, uncomplicated; F17.210 Nicotine dependence, cigarettes, uncomplicated; F10.282 Alcohol dependence with alcohol-induced sleep disorder; F32.A Depression, unspecified; Z86.69 Personal history of other diseases of the nervous system and sense organs
CPT/HCPCS: 80305